=== PATIENT | female | born 1955 | race Caucasian/White ===

== ENCOUNTER 2016-09-17 22:49 | Observation (INO) | payer BC ==
[~2016-09-17] VITALS: Ht 165.1 cm; Wt 81.4 kg
[2016-09-18 01:03] LABS: HEMOGLOBIN 13.5 gm/dl (12.3-15.3); RED BLOOD COUNT 4.59 M/UL (4.00-5.10); WHITE BLOOD COUNT 17.3 K/UL (4.5-11.0)
[2016-09-18 01:23] LABS: BUN/CREATININE RATIO 25 (0-10)
[2016-09-18] MEDS ORDERED: CELEXA20 MG PO (10:03)
[2016-09-18] MEDS ORDERED: AMBIEN5 MG PO (10:03)
[2016-09-18] MEDS ORDERED: LORTAB 5-325 M1 EACH PO (10:04)
[2016-09-18 10:52] LABS: HEMOGLOBIN 12.7 gm/dl (12.3-15.3); RED BLOOD COUNT 4.3 M/UL (4.00-5.10)
== END 2016-09-18 19:30 | disposition home or self-care (01) ==
LOC: ER1 22:49 → ZEROF 09-18 04:38 → M/S 09-18 06:19
PROVIDERS: Physician Assistant; ADMIT Family Medicine
DX: R55 Syncope and collapse (principal); K21.9 Gastro-esophageal reflux disease without esophagitis; E66.9 Obesity, unspecified; G47.00 Insomnia, unspecified; M19.90 Unspecified osteoarthritis, unspecified site; M51.36 Other intervertebral disc degeneration, lumbar region; G89.29 Other chronic pain; Z87.19 Personal history of other diseases of the digestive system; Z90.49 Acquired absence of other specified parts of digestive tract; Z90.710 Acquired absence of both cervix and uterus; Z88.2 Allergy status to sulfonamides; Z79.891 Long term (current) use of opiate analgesic; Z79.899 Other long term (current) drug therapy
CPT/HCPCS: ECHO; 36415; 70450; 71010; 72125; 80053; 80307; 81001; 82550; 82553; 83874; 84484; 85025; 85027; 85379; 87086; 93005; 93306; 96360; 96361; 99285; G0378; G0480; J7030; J7050; Q9963

== ENCOUNTER → 2016-10-03 | Outpatient (CLI) | payer BC, SELFPAY ==
[~2016-10-03] MED LIST: AMBIEN5 MG PO; CELEXA20 MG PO; LORTAB 5-325 M1 EACH PO
== END ==
LOC: EMI 08:55
DX: R55 Syncope and collapse (principal); R90.89 Other abnormal findings on diagnostic imaging of central nervous system
CPT/HCPCS: 70551

== ENCOUNTER → 2020-10-01 | Outpatient (CLI) | payer BC, OTHER ==
[2020-10-01 08:18] LABS: HEMOGLOBIN 13.3 gm/dl (12.3-15.3); RED BLOOD COUNT 4.48 M/UL (4.00-5.10); WHITE BLOOD COUNT 5.8 K/UL (4.5-11.0)
== END ==
LOC: LAB 07:29
PROVIDERS: Family Medicine
DX: R76.8 Other specified abnormal immunological findings in serum (principal); E53.8 Deficiency of other specified B group vitamins; E55.9 Vitamin D deficiency, unspecified
CPT/HCPCS: 36415; 80053; 80061; 82607; 85027

== ENCOUNTER → 2021-02-13 | Outpatient (CLI) | payer BC, OTHER | LOC: RAD 09:58 | DX: M54.16 Radiculopathy, lumbar region (principal); M48.061 Spinal stenosis, lumbar region without neurogenic claudication | CPT/HCPCS: 72100 ==